=== PATIENT | female | born 1955 | race Two or more races ===

== ENCOUNTER 2025-02-27 14:41 | Emergency (ER) | payer OTHER ==
[~2025-02-27] VITALS: Ht 160 cm; Wt 101.6 kg
[2025-02-27] MEDS ORDERED: SYNTHROID125 MCG PO (14:57)
[2025-02-27] MEDS ORDERED: LYRICA100 MG PO (14:57)
[2025-02-27] MEDS ORDERED: XANAX2 MG PO (14:57)
[2025-02-27] MEDS ORDERED: PRILOSEC OTC20 MG PO (14:58)
[2025-02-27] MEDS ORDERED: CHILDREN'S ASPI81 MG PO (14:58)
[2025-02-27] MEDS ORDERED: SINGULAIR10 MG PO (14:58)
[2025-02-27] MEDS ORDERED: NASAL MIST126 ML (14:59)
[2025-02-27] MEDS ORDERED: ZESTRIL10 M1 PO (14:59)
[2025-02-27] MEDS ORDERED: CRESTOR40 MG PO (14:59)
[2025-02-27] MEDS ORDERED: ENDOCET 5-3251 EACH PO (15:00)
[2025-02-27] MEDS ORDERED: BENADRYL25 MG PO (15:00)
[2025-02-27] MEDS ORDERED: FAMOTIDINE/PF 20 MG/2 ML VIAL IV ONE (15:45)
[2025-02-27] MEDS ORDERED: ONDANSETRON HCL 2 MG/ML VIAL IV ONE (15:45)
[2025-02-27 16:49] LABS: BASO % 0.1 % (0.1-1.2); EOS # 0.13 (0.04-0.54); EOS % 0.8 % (0.7-7.0); LYMPH # 3.29 (1.18-3.74); LYMPH % 21.5 % (19.3-53.1); MEAN PLATELET VOLUME 11.20 fl (9.4-12.4); MONO # 0.99 (0.24-0.82); MONO % 6.5 % (4.7-12.5); NEUT # 10.80 (1.56-6.13); NEUT % 70.4 % (34.0-71.1); RED CELL DISTRIBUTION WIDTH 15.5 % (11.6-14.4)
[2025-02-27 17:10] LABS: INR 0.98
[2025-02-27 17:20] LABS: COVID-19 AG NEGATIVE (NEGATIVE)
[2025-02-27 17:39] LABS: ALT/SGPT 35.0 U/L (12-78); AST/SGOT 18.0 U/L (15-37); BILIRUBIN TOTAL 0.61 mg/dL (0.3-1.2); BUN CREA RATIO 17.0 (7.0-25.0); CREATININE SERUM 1.37 mg/dL (0.55-1.02); GFR 38.23; GLOBULINA 4.1 G/DL (2.4-3.5); GLUCOSE FASTING 108.0 mg/dL (65-100); OSMOLALITY SERUM 287.0 MOSM/KG (275-295)
[2025-02-27] MEDS ORDERED: PEPCID AC20 MG PO (20:13)
[2025-02-27] MEDS ORDERED: CARAFATE1 GM PO (20:13)
== END 2025-02-27 20:38 | disposition home or self-care (01) ==
LOC: ER 14:41
PROVIDERS: Emergency Medicine
DX: R10.9 Unspecified abdominal pain (principal); R55 Syncope and collapse; Z20.822 Contact with and (suspected) exposure to COVID-19; I10 Essential (primary) hypertension; E03.8 Other specified hypothyroidism; E11.9 Type 2 diabetes mellitus without complications
CPT/HCPCS: 36415; 70450; 71045; 71250; 73560; 74176; 93005; 96365; 99284; J2405; J3490